=== PATIENT | male | born 1995 | race Caucasian/White ===

== ENCOUNTER → 2020-10-08 10:24 | Outpatient (BNVA) | payer OTHER, SELFPAY | PROVIDERS: Family Provider Family Medicine; Visit Provider Nurse Practitioner Family | DX: Z20.822 Contact with and (suspected) exposure to COVID-19 (principal); J06.9 Acute upper respiratory infection, unspecified | CPT/HCPCS: 87635 ==

== ENCOUNTER 2023-03-16 14:43 | Emergency (ER) | payer SELFPAY ==
--- NOTE | 2023-03-16 14:52 | ECG_ITS ---
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 Measurements Intervals [place] Rate: 78 P: 42 MT: 159 QRS: 94 QRSD: 108 T: 34 QT: 391 QTc: 448 Interpretive Statements SINUS RHYTHM BORDERLINE RIGHT AXIS DEVIATION [QRS AXIS > 90] Compared to ECG 04/17/2014 11:27:43 No significant changes Electronically Signed On 03-16-2023 16:54:03 SEO CONSULTANT by Reji Atwood M.D. [id number]
[2023-03-16 14:54] VITALS: BP 221/114; PULSE 102; RESP 20; TEMP 36.6; O2SAT 98; BMI 52.2
--- NOTE | 2023-03-16 14:59 | XR_ITS ---
WS: [id number] Exam: XR chest 1V portable [id number] Date/Time of Exam: 03/16/2023 2:59 PM Reason For Exam: chest pain Comparison 04/17/2014. Findings: The lungs are clear and fully expanded. Costophrenic angles are sharp. No infiltrates. Bronchovascula r relief appears normal. Cardiac silhouette is unremarkable. Bony elements are intact. IMPRESSION: Unremarkable chest radiograph.
--- NOTE | 2023-03-16 14:59 | ED_ITS ---
Documented by User: DOLLY Zamora 03/19/23 08:59 HPI - Chest Pain 2 General: Chief Complaint: Chest Pain Stated Complaint: CP,shaky, high bp Time Seen by Provider: 03/16/23 14:44 Source: patient Mode of arrival: wheelchair Limitations: no limitations History of Present Illness: Patient patient is a 27-year-old male with no known past medical history apart from morbid obesity with a BMI of over 52 here for complaints of acute onset left sided chest pain that began roughly an hour ago. He states he does feel somewhat short of breath. Patient states pain began at rest and seems to radiate into his left arm. He has no known cardiac or pulmonary history. Denies recent illness. No recent surgeries. Denies family history of cardiac disease. Patient denies drug use. He does report occasional energy drink use. Patient arrives very hypertensive with a BP in the 220s/110s. He states he does not routinely check his blood pressure. MD complaint: chest pain Onset (ago): hour(s) Timing of current episode: constant Prior episodes: No Onset: during rest Pain location: left chest Pain radiation: left arm Severity: moderate Quality: heaviness Relieving factors: nothing Exacerbating factors: nothing Associated symptoms: Reports dyspnea; Deny abdominal pain, fever(s), nausea, palpitations, syncope or vomiting Treatment prior to arrival: none Risk Factors: Coronary artery disease risk factors: none Thoracic aortic dissection risk factors: none Review of Systems 2 Const: Denies: fever(s), chills, body aches, fatigue or malaise Card: Reports: chest pain; Denies: palpitations, irregular heart rhythm, edema, swelling of feet/ankles, lightheadedness, syncope, pre-syncope, dyspnea on exertion, orthopnea, leg pain with exertion or acrocyanosis Resp: Reports: dyspnea; Denies: productive cough, non-productive cough, wheezing, pain on inspiration, change in phlegm color, hemoptysis or chest congestion GI: Denies: abdominal pain, nausea, vomiting or diarrhea : Denies: flank pain or dysuria Musc: Denies: neck pain, back pain, extremity pain, extremity swelling or joint pain Skin/Breast: Denies: rash Neuro: Denies: headache(s), numbness in extremities, weakness in extremities, sensory changes, difficulty walking or dizziness Physical Exam 2 Const: COMMON NORMALS: patient oriented x3, no limitations and alert G ENERAL APPEARANCE: cooperative and anxious NUTRITIONAL APPEARANCE: obese morbidly obese (BMI over 53) ORIENTATION/CONSCIOUSNESS: Yes awake, Yes oriented to person, Yes oriented to place and Yes oriented to time HENMT: COMMON NORMALS: normocephalic and atraumatic HEAD & SCALP: normal to inspection, normocephalic and atraumatic FACE & SINUS: normal facial exam Neck/C-Spine: COMMON NORMALS: no JVD and No carotid bruits Chest: COMMONS NORMALS: normal inspection of the chest OTHER: grimaces with palpation of L anterior chest Resp: COMMON NORMALS: normal respiratory effort and clear to auscultation bilaterally AUSCULTATION: clear to auscultation bilaterally Cardio: COMMON NORMALS: no JVD, regular rate and regular rhythm RATE: r egular rate RHYTHM: regular rhythm GI: COMMON NORMALS: Normal to inspection, nondistended, normoactive bowel sounds present, Soft to palpation, non-tender and no masses PALPATION: Yes Soft to palpation OTHER: limited by body habitus Extremity: COMMON NORMALS: capillary refill normal, no clubbing, cyanosis or edema, no calf tenderness and no pedal edema Neuro: CRISTHIAN COMA SCALE: document GCS findings Delray coma scale eye opening: Spontaneous Cristhian coma scale verbal response: Orientated Cristhian coma scale motor response: Obey commands Delray coma scale total score: 15 COMMON NORMALS: patient oriented x3, moves all extremities, no focal motor deficits and no sensory deficits noted SENSORIUM/ORIENTATION: Yes alert, Yes oriented to person, Yes oriented to place and Yes oriented to time Skin: COMMON NORMALS: no rashes or lesions noted GENERAL SKIN EXAM: no rashes or lesions noted Course 2 ED course: Care transferred to Dr. Amaro at 1700. 2hr trop pending. Patient resting comfortably in NAD. BP trending down. States toradol greatly helped his discomfort. ES Reevaluation(s): Reevaluation #1: Patient states after IV Toradol his pain went from a 7/10 down to a 3/10. Time: 16:24 Vital Signs: Vital signs: Vital Signs Temperature 97.9 F 03/16/23 14:54 Pulse Rate 62 03/16/23 17:21 Respiratory Rate 20 H 03/16/23 14:54 Blood Pressure 168/84 03/16/23 17:21 Pulse Oximetry 96 03/16/23 17:21 Oxygen Delivery Me thod Room Air 03/16/23 17:21 MDM - Chest Pain Lab Data 03/16/23 15:15 03/16/23 15:15 Laboratory Results WBC 8.59 10^3/uL (3.29-11.43) 03/16/23 15:15 RBC 5.19 10^6/uL (3.85-5.65) 03/16/23 15:15 Hgb 13.50 g/dL (11.27-16.99) 03/16/23 15:15 Hct 42.2 % (37-53) 03/16/23 15:15 MCV 81.3 fl (82-101) L 03/16/23 15:15 MCH 26.0 pg (27-33) L 03/16/23 15:15 MCHC 32.0 g/dL (30-55) 03/16/23 15:15 RDW 14.0 % (12.1-15.1) 03/16/23 15:15 Plt Count 337 10^3/cmm (157-399) 03/16/23 15:15 MPV 9.5 fL (7.4-10.4) 03/16/23 15:15 Neut % (Auto) 65.0 % 03/16/23 15:15 Lymph % (Auto) 24.9 % 03/16/23 15:15 [place] % (Auto) 7.2 % 03/16/23 15:15 Eos % (Auto) 2.4 % 03/16/23 15:15 Baso % (Auto) 0.3 % 03/16/23 15:15 Neut # (Auto) 5.57 10^3/uL (1.8-7.7) 03/16/23 15:15 Lymph # (Auto) 2.1 10^3/uL (0.8-4.8) 03/16/23 15:15 [place] # (Auto) 0.6 10^3/uL (0.2-0.9) 03/16/23 15:15 Eos # (Auto) 0.2 10^3/uL (0.0-0.8) 03/16/23 15:15 Baso # (Auto) 0.0 10^3/uL (0.0-0.1) 03/16/23 15:15 Nucleated RBC % (auto) 0 % 03/16/23 15:15 Nucleated RBCs # 0.0 /100WBC 03/16/23 15:15 D-Dimer 0.33 ug/mLFEU (0-0.59) 03/16/23 15:15 Sodium 138 mmol/L (136-145) 03/16/23 15:15 Potassium 4.0 mmol/L (3.5-5.1) 03/16/23 15:15 Chloride 98 mmol/L (98-107) 03/16/23 15:15 Carbon Dioxide 24 mmol/L (22-29) 03/16/23 15:15 Anion Gap 20.0 (5-19) H 03/16/23 15:15 BUN 12 mg/dL (6-20) 03/16/23 15:15 Creatinine 0.7 mg/dL (0.7-1.2) 03/16/23 15:15 GFR Calculation 133.3 mL/min (90-130) H 03/16/23 15:15 Glucose 133 mg/dL (65-115) H 03/16/23 15:15 Calculated Osmolality 288 mOsm/kg (285-295) 03/16/23 15:15 Calcium 9.6 mg/dL (8.5-10.5) 03/16/23 15:15 Total Bilirubin 0.5 mg/dL (0.15-1.2) 03/16/23 15:15 AST 39 U/L (0-40) 03/16/23 15:15 ALT 40 U/L (0-41) 03/16/23 15:15 Alkaline Phosphatase 57 U/L (40-130) 03/16/23 15:15 Troponin T Baseline 9 ng/L (0-15) 03/16/23 15:15 Troponin T 120 Minute 7.34 ng/L (0-15) 03/16/23 17:03 Delta Troponin T -1.66 ABS# (0-10) L 03/16/23 17:03 Total Protein 8.0 g/dL (6.6-8.7) 03/16/23 15:15 Albumin 4.4 g/dL (3.5-5.2) 03/16/23 15:15 Globulin 3.6 g/dL (1.3-4.6) 03/16/23 15:15 Discharge Plan Discharge Patient Disposition: Home Clinical Impression: Chest pain Qualifiers: Chest pain type: unspecified Qualified Code(s): R07.9 - Chest pain, unspecified Hypertension Qualifiers: Hypertension type: unspecified Qualified Code(s): I10 - Essential (primary) hypertension Condition: Stable Prescriptions: New Norvasc 5 mg tablet 5 mg PO DAILY Qty: 30 0RF No Action magnesium 250 mg Tablet 250 mg PO DAILY calcium citrate 250 mg calcium Tablet 250 mg PO DAILY Men's Multivitamin 400-20-300 mcg Tablet 1 tab PO DAILY Discharge Orders: Discharge ED (Routine); Ordered 03/16/23 Ordered By: Gurjit Amaro Referrals: Judie Ybarra MD [Primary Care Provider] - 1-3 days Discharge Diet: Advance as tolerated Discharge Activity: Resume usual activity Patient Instructions: Chest Pain (ED), Hypertension (ED) Coding Level of Care Code ED Business Asst for Chg Fwd Documented by User: Gurjit Amaro MD 03/16/23 17:36 HPI - Chest Pain 2 General: Chief Complaint: Chest Pain Stated Complaint: CP,shaky, high bp Time Seen by Provider: 03/16/23 14:44 Physical Exam 2 Neuro: CRISTHIAN COMA SCALE: document GCS findings Cristhian coma scale total score: 15 Course 2 Vital Signs: Vital signs: Vital Signs Temperature 97.9 F 03/16/23 14:54 Pulse Rate 62 03/16/23 17:21 Respiratory Rate 20 H 03/16/23 14:54 Blood Pressure 168/84 03/16/23 17:21 Pulse Oximetry 96 03/16/23 17:21 Oxygen Delivery Me thod Room Air 03/16/23 17:21 MDM - Chest Pain Medical Decision Making Patient presents here with chest pains atypical in nature troponins EKG x-ray are normal he is hypertensive here likely chronically hypertensive we will start him on Norvasc informed he needs to follow-up with PCP he does not have 1 I did put an order in to case management to set him up with a PCP he is return if worsening he understands agrees to plan. Medical Records I reviewed the patient's medical records. Lab Data I reviewed the patient's lab results. 03/16/23 15:15 03/16/23 15:15 Laboratory Results WBC 8.59 10^3/uL (3.29-11.43) 03/16/23 15:15 RBC 5.19 10^6/uL (3.85-5.65) 03/16/23 15:15 Hgb 13.50 g/dL (11.27-16.99) 03/16/23 15:15 Hct 42.2 % (37-53) 03/16/23 15:15 MCV 81.3 fl (82-101) L 03/16/23 15:15 MCH 26.0 pg (27-33) L 03/16/23 15:15 MCHC 32.0 g/dL (30-55) 03/16/23 15:15 RDW 14.0 % (12.1-15.1) 03/16/23 15:15 Plt Count 337 10^3/cmm (157-399) 03/16/23 15:15 MPV 9.5 fL (7.4-10.4) 03/16/23 15:15 Neut % (Auto) 65.0 % 03/16/23 15:15 Lymph % (Auto) 24.9 % 03/16/23 15:15 [place] % (Auto) 7.2 % 03/16/23 15:15 Eos % (Auto) 2.4 % 03/16/23 15:15 Baso % (Auto) 0.3 % 03/16/23 15:15 Neut # (Auto) 5.57 10^3/uL (1.8-7.7) 03/16/23 15:15 Lymph # (Auto) 2.1 10^3/uL (0.8-4.8) 03/16/23 15:15 [place] # (Auto) 0.6 10^3/uL (0.2-0.9) 03/16/23 15:15 Eos # (Auto) 0.2 10^3/uL (0.0-0.8) 03/16/23 15:15 Baso # (Auto) 0.0 10^3/uL (0.0-0.1) 03/16/23 15:15 Nucleated RBC % (auto) 0 % 03/16/23 15:15 Nucleated RBCs # 0.0 /100WBC 03/16/23 15:15 D-Dimer 0.33 ug/mLFEU (0-0.59) 03/16/23 15:15 Sodium 138 mmol/L (136-145) 03/16/23 15:15 Potassium 4.0 mmol/L (3.5-5.1) 03/16/23 15:15 Chloride 98 mmol/L (98-107) 03/16/23 15:15 Carbon Dioxide 24 mmol/L (22-29) 03/16/23 15:15 Anion Gap 20.0 (5-19) H 03/16/23 15:15 BUN 12 mg/dL (6-20) 03/16/23 15:15 Creatinine 0.7 mg/dL (0.7-1.2) 03/16/23 15:15 GFR Calculation 133.3 mL/min (90-130) H 03/16/23 15:15 Glucose 133 mg/dL (65-115) H 03/16/23 15:15 Calculated Osmolality 288 mOsm/kg (285-295) 03/16/23 15:15 Calcium 9.6 mg/dL (8.5-10.5) 03/16/23 15:15 Total Bilirubin 0.5 mg/dL (0.15-1.2) 03/16/23 15:15 AST 39 U/L (0-40) 03/16/23 15:15 ALT 40 U/L (0-41) 03/16/23 15:15 Alkaline Phosphatase 57 U/L (40-130) 03/16/23 15:15 Troponin T Baseline 9 ng/L (0-15) 03/16/23 15:15 Troponin T 120 Minute 7.34 ng/L (0-15) 03/16/23 17:03 Delta Troponin T -1.66 ABS# (0-10) L 03/16/23 17:03 Total Protein 8.0 g/dL (6.6-8.7) 03/16/23 15:15 Albumin 4.4 g/dL (3.5-5.2) 03/16/23 15:15 Globulin 3.6 g/dL (1.3-4.6) 03/16/23 15:15 All radiology interpretation(s) finalized by discharge Discharge Plan Discharge Patient Disposition: Home Clinical Impression: Chest pain Qualifiers: Chest pain type: unspecified Qualified Code(s): R07.9 - Chest pain, unspecified Hypertension Qualifiers: Hypertension type: unspecified Qualified Code(s): I10 - Essential (primary) hypertension Condition: Stable Prescriptions: New Norvasc 5 mg tablet 5 mg PO DAILY Qty: 30 0RF No Action magnesium 250 mg Tablet 250 mg PO DAILY calcium citrate 250 mg calcium Tablet 250 mg PO DAILY Men's Multivitamin 400-20-300 mcg Tablet 1 tab PO DAILY Discharge Orders: Discharge ED (Routine); Ordered 03/16/23 Ordered By: Gurjit Amaro Referrals: Judie Ybarra MD [Primary Care Provider] - 1-3 days Discharge Diet: Advance as tolerated Discharge Activity: Resume usual activity Patient Instructions: Chest Pain (ED), Hypertension (ED) Coding Level of Care Code ED Business Asst for Kristin Andrade
--- NOTE | 2023-03-16 15:04 | ECG_ITS ---
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 Measurements Intervals [place] Rate: 77 P: 40 ID: 150 QRS: 91 QRSD: 110 T: 35 QT: 380 QTc: 433 Interpretive Statements SINUS RHYTHM WITH SINUS ARRHYTHMIA BORDERLINE RIGHT AXIS DEVIATION [QRS AXIS > 90] Compared to ECG 04/17/2014 11:27:43 No significant changes Electronically Signed On 03-16-2023 16:54:24 GUARD DANCE HALL by Reji Atwood M.D. [id number]
[2023-03-16] MEDS: metoprolol tartrate 1 mg/1 mL SDV 5 mL 5 MG IVP (15:19)
[2023-03-16 15:33] LABS: Basophils % 0.3 %; Eosinophils # 0.2 10^3/uL (0.0-0.8); Eosinophils % 2.4 %; Hematocrit 42.2 % (37-53); Lymphocytes # 2.1 10^3/uL (0.8-4.8); Lymphocytes % 24.9 %; Mean Corpuscular Volume 81.3 fl (82-101); Mean Platelet Volume 9.5 fL (7.4-10.4); Monocytes # 0.6 10^3/uL (0.2-0.9); Monocytes % 7.2 %; Neutrophils # 5.57 10^3/uL (1.8-7.7); Nucleated Red Blood Cells % 0 %; Platelet Count 337 10^3/cmm (157-399); Red Blood Count 5.19 10^6/uL (3.85-5.65); White Blood Count 8.59 10^3/uL (3.29-11.43)
[2023-03-16 15:40] VITALS: BP 178/105; BP 199/105; PULSE 73; O2SAT 95
[2023-03-16 15:42] LABS: Troponin(5th) Baseline 9 ng/L (0-15)
[2023-03-16 15:43] LABS: Alanine Aminotransferase 40 U/L (0-41); Albumin Level 4.4 g/dL (3.5-5.2); Alkaline Phosphatase 57 U/L (40-130); Aspartate Amino Transferase 39 U/L (0-40); Blood Urea Nitrogen 12 mg/dL (6-20); Calcium 9.6 mg/dL (8.5-10.5); Carbon Dioxide 24 mmol/L (22-29); Chloride 98 mmol/L (98-107); Globulin 3.6 g/dL (1.3-4.6); Glomerular Filtration Rate 133.3 mL/min (90-130); Glucose 133 mg/dL (65-115); Osmolality Calculated 288 mOsm/kg (285-295); Sodium 138 mmol/L (136-145); Total Bilirubin 0.5 mg/dL (0.15-1.2)
[2023-03-16] MEDS: hyDRALAzine 20 mg/mL INJ 1 mL 5 MG IVP (15:46)
[2023-03-16] MEDS: ketorolac 30 mg/mL INJ IVP (16:03)
[2023-03-16 16:13] VITALS: BP 184/87; PULSE 64; O2SAT 98
--- NOTE | 2023-03-16 16:59 | ECG_ITS ---
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 Measurements Intervals [place] Rate: 61 P: 44 FL: 195 QRS: 89 QRSD: 108 T: 48 QT: 421 QTc: 425 Interpretive Statements SINUS RHYTHM Compared to ECG 03/16/2023 15:04:37 Sinus arrhythmia no longer present Electronically Signed On 03-16-2023 16:54:14 CORONER FORENSIC TECHNICIAN by Reji Atwood M.D. [email or web address] christ [email or web address]/store/[id number]
[2023-03-16 17:21] VITALS: BP 168/84; PULSE 62; O2SAT 96
[2023-03-16 17:30] LABS: Troponin 5 2HR 7.34 ng/L (0-15)
[2023-03-16 17:31] LABS: Troponin 5 2HR Delta -1.66 ABS# (0-10)
--- NOTE | 2023-03-17 08:19 | DCPLANNER ---
Message was sent to [facility] on 03/17/23 at 0819. [facility] to contact patient for an appt.
[2023-03-17 12:39] LABS: D Dimer 0.33 ug/mLFEU (0-0.59)
== END 2023-03-16 17:46 | disposition home or self-care (01) ==
PROVIDERS: Physician Assistant; Emergency Provider Emergency Medicine; PCP Family Medicine
DX: R07.9 Chest pain, unspecified (principal); I10 Essential (primary) hypertension; E66.01 Morbid (severe) obesity due to excess calories; Z68.43 Body mass index [BMI] 50.0-59.9, adult
CPT/HCPCS: 36415; 71045; 80053; 84484; 85025; 85378; 93005; 96374; 96375; 99285; J0360; J1885; J3490